=== PATIENT | male | born 1990 | race Two or more races ===

== ENCOUNTER 2018-05-18 10:13 | Inpatient (IN) | payer OTHER ==
[2018-05-18 11:32] LABS: HEMATOCRIT 48.5 % (42.0-52.0); HEMOGLOBIN 17.1 g/dl (13.5-17.5); MEAN CORPUSCULAR HEMOGLOBIN 31.6 pg (27.0-33.0); MEAN CORPUSCULAR HGB CONC 35.3 g/dl (32.0-36.5); MEAN CORPUSCULAR VOLUME 89.6 fl (80.0-96.0); PLATELET COUNT, AUTOMATED 327 10^3/uL (150-450); RED BLOOD COUNT 5.41 10^6/uL (4.30-6.10); RED CELL DISTRIBUTION WIDTH 11.8 % (11.5-14.5)
[2018-05-18 12:06] LABS: ACETAMINOPHEN LEVEL 15.5 UG/ML (10.0-30.0); ALBUMIN 4.2 GM/DL (3.2-5.2); ALBUMIN/GLOBULIN RATIO 1.24 (1.00-1.93); ALKALINE PHOSPHATASE 55 U/L (45-117); ALT/SGPT 28 U/L (12-78); ANION GAP 8 MEQ/L (8-16); AST/SGOT 17 U/L (7-37); BILIRUBIN,DIRECT 0.2 MG/DL (0.0-0.2); BILIRUBIN,TOTAL 1.2 MG/DL (0.2-1.0); BLOOD UREA NITROGEN 9 MG/DL (7-18); CALCIUM LEVEL 8.8 MG/DL (8.5-10.1); CARBON DIOXIDE LEVEL 29 MEQ/L (21-32); CHLORIDE LEVEL 105 MEQ/L (98-107); CREATININE FOR GFR 0.97 MG/DL (0.70-1.30); ETHYL ALCOHOL (ETHANOL) 0.113 % (0.000-0.010); GLOMERULAR FILTRATION RATE > 60.0 (>60); GLUCOSE, FASTING 84 MG/DL (70-100); POTASSIUM SERUM 3.6 MEQ/L (3.5-5.1); SALICYLATE LEVEL < 1.7 MG/DL (5.0-30.0); SODIUM LEVEL 142 MEQ/L (136-145); TOTAL PROTEIN 7.6 GM/DL (6.4-8.2)
[2018-05-18] MEDS: NICOTINE 21MG/24HR 1 EA TRANSDERMAL TD ×2 (12:30→20:01)
[2018-05-18 13:13] LABS: AMPHETAMINES LEVEL URINE NEGATIVE (NEGATIVE); BARBITURATES URINE NEGATIVE (NEGATIVE); BENZODIAZEPINES URINE NEGATIVE (NEGATIVE); CANNABINOIDS URINE NEGATIVE (NEGATIVE); COCAINE METABOLITE URINE NEGATIVE (NEGATIVE); METHADONE URINE NEGATIVE (NEGATIVE); OPIATES URINE NEGATIVE (NEGATIVE); PHENCYCLIDINE URINE NEGATIVE (NEGATIVE)
[2018-05-18] MEDS ORDERED: MAALOX 30 ML SUSP *UDC PO (16:15)
[2018-05-18] MEDS ORDERED: ACETAMINOPHEN TAB 650MG DOSE (2X325MG) PO (16:15)
[2018-05-18] MEDS ORDERED: MOM 30ML SUSPENSION UDC PO (16:15)
[2018-05-18] MEDS: traZODone 50 MG TAB PO (19:59)
[2018-05-18] MEDS ORDERED: NAPROXEN 250 MG TAB PO (21:45)
[2018-05-19] MEDS: NICOTINE 21MG/24HR 1 EA TRANSDERMAL TD (08:47)
[2018-05-19] MEDS: NICOTINE POLACRILEX 2 MG GUM PO ×2 (16:22→18:53)
[2018-05-19] MEDS: traZODone 50 MG TAB PO (20:57)
[2018-05-20] MEDS: NICOTINE POLACRILEX 2 MG GUM PO ×4 (08:28→18:16)
[2018-05-20] MEDS: traZODone 50 MG TAB PO (21:41)
[2018-05-21] MEDS: NICOTINE POLACRILEX 2 MG GUM PO ×5 (08:10→19:35)
[2018-05-21] MEDS: traZODone 50 MG TAB PO (20:45)
[2018-05-22] MEDS: NICOTINE POLACRILEX 2 MG GUM PO ×7 (06:47→21:39)
[2018-05-22] MEDS: traZODone 50 MG TAB PO (20:13)
[2018-05-23] MEDS: NICOTINE POLACRILEX 2 MG GUM PO ×7 (07:51→21:21)
[2018-05-23] MEDS: traZODone 50 MG TAB PO (20:05)
[2018-05-24] MEDS: NICOTINE POLACRILEX 2 MG GUM PO ×7 (07:51→21:48)
[2018-05-24] MEDS: traZODone 50 MG TAB PO (20:18)
[2018-05-25] MEDS: NICOTINE POLACRILEX 2 MG GUM PO ×2 (07:58→10:52)
== END 2018-05-25 12:30 | disposition home or self-care (01) | DRG 881 ==
LOC: M ED 10:13 → M ED INP 16:09 → M PSY 18:22
DX: F32.9 Major depressive disorder, single episode, unspecified (principal); F17.200 Nicotine dependence, unspecified, uncomplicated; S61.512A Laceration without foreign body of left wrist, initial encounter; Z91.5 Personal history of self-harm; X78.1XXA Intentional self-harm by knife, initial encounter; Y93.89 Activity, other specified; Y92.019 Unspecified place in single-family (private) house as the place of occurrence of the external cause